=== PATIENT | male | born 1995 | race African-American/Black ===

== ENCOUNTER 2020-07-23 22:50 | Emergency (ER) | payer OTHER ==
[~2020-07-23] VITALS: Ht 180.3 cm; Wt 65.8 kg
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
--- NOTE | 2020-07-23 23:16 | NUR ---
X RAY AT BED SIDE
--- NOTE | 2020-07-23 23:52 | NUR ---
TECH AT BEDSIDE FOR LEFT LONG ARM SPLINT
[2020-07-23 23:53] VITALS: BP 123/73
--- NOTE | 2020-07-23 23:53 | NUR ---
Patient discharged to home in stable condition. Written and verbal after care instructions given. Patient verbalizes understanding of instruction.
--- NOTE | 2020-07-23 23:54 | NUR ---
PATIENT UNDERSTANDS TO SEE ORTHOPEDIST FOR FURTHER CARE.
== END 2020-07-24 00:11 | disposition home or self-care (01) ==
LOC: ER 22:55
DX: S52.125A Nondisplaced fracture of head of left radius, initial encounter for closed fracture (principal); Z98.890 Other specified postprocedural states; Z88.1 Allergy status to other antibiotic agents; V98.8XXA Other specified transport accidents, initial encounter; Y93.89 Activity, other specified; Y92.89 Other specified places as the place of occurrence of the external cause; Y99.8 Other external cause status
CPT/HCPCS: 73080-TC; 73090-TC